=== PATIENT | male | born 1960 | race American Indian/Alaskan Native ===

== ENCOUNTER 2019-04-11 08:07 | Outpatient (CLI) | payer OTHER ==
[2019-04-11 08:48] LABS: Blood Urea Nitrogen 15 mg/dL (9-20)
--- NOTE | 2019-04-11 10:24 | Cat Scan Report ---
CT ABDOMEN AND PELVIS WITH AND WITHOUT CONTRAST INDICATION: R31.1 BENIGN ESSENTIAL MICROSCOPIC HEMATURIA. COMPARISON: No relevant prior imaging study available. TECHNIQUE: Axial, coronal and sagittal CT imaging of the abdomen and pelvis was performed before and after injection of 100 mL Omnipaque [address] scans at this location are performed using CT dose reduction for ALARA by means of automated exposure control. FINDINGS: LOWER CHEST: No significant abnormality. LIVER: No significant abnormality. BILIARY: No significant abnormality. PANCREAS: No significant abnormality. SPLEEN: No significant abnormality. ADRENALS: No significant abnormality. KIDNEYS AND URETERS: No significant abnormality. GI TRACT: No significant abnormality of the stomach, small bowel or colon. Unremarkable appendix. PERITONEUM: No free fluid. No free air. No fluid collection. LYMPH NODES: No significant adenopathy. VASCULATURE: No significant abnormality. URINARY BLADDER: No significant abnormality. REPRODUCTIVE ORGANS: The prostate gland is enlarged and measures 5.7 x 4.9 cm. ADDITIONAL FINDINGS: None. SKELETAL SYSTEM: No acute abnormality. There are degenerative changes throughout the spine and pelvis . IMPRESSION: 1. No acute abnormality of the abdomen or pelvis. 2. No significant abnormality of the genitourinary structures is seen to explain the patient's micros copic hematuria. 3. Enlarged prostate gland. Signer Name: Lamberto Wagner MD Signed: 04/11/2019 10:19 AM Workstation Name: [id number]
== END 2019-04-11 08:08 | disposition home or self-care (01) ==
LOC: CT 08:07
PROVIDERS: ATTEND Urology
DX: N40.0 Benign prostatic hyperplasia without lower urinary tract symptoms (principal)
CPT/HCPCS: 36415; 74178; 82565; 84520; Q9967